=== PATIENT | female | born 1970 | race Caucasian/White ===

== ENCOUNTER 2018-09-11 07:15 | Emergency (ER) | payer OTHER ==
[2018-09-11 07:24] VITALS: BP 137/95; PULSE 80; TEMP 98; BMI 22.0
--- NOTE | 2018-09-11 07:53 | PDOC ---
History of Present Illness - General Chief Complaint: Injury Stated Complaint: CUT LEFT 1ST FINGER Time Seen by Provider: 09/11/18 07:46 History Source: Patient Exam Limitations: No Limitations - History of Present Illness Initial Comments: 09/11/18 07:48\\ 48 YOF with no med history presenting with left index fingertip skin laceration s/p cut with serrated knife to bagel. bleeding here. tdap up to date. taken motrin WASHER OFF. Allergies: None Past Medical History: none Social history: Lives with family. No tobacco, ETOH or drug use. Surgical history: noncontributory Past History - Past Medical History Allergies/Adverse Reactions: Allergies Allergy/AdvReac Type Severity Reaction Status Date / Time No Known Allergies Allergy Verified 09/11/18 07:17 Home Medications: Ambulatory Orders Albuterol Sulfate Inhaler - [Ventolin Hfa Inhaler -] 1 - 2 inh PO QID 09/11/18 Asthma: Yes COPD: No - Immunization History Immunization Up to Date: Yes - Suicide/Smoking/Psychosocial Hx Smoking History: Never smoked Have you smoked in the past 12 months: No Information on smoking cessation initiated: No Hx Alcohol Use: No Drug/Substance Use Hx: No Review of Systems - Review of Systems Able to Perform ROS?: Yes Comments:: 09/11/18 07:49 MUSCULOSKELETAL: No joint pain and swelling. No neck or back pain. +finger pain SKIN: no redness or skin changes, no discharge, no rash. +skin laceration/ avulsion of fingertip skin Hematologic: no easy bruising/bleeding. NEUROLOGIC: No weakness, numbness or tingling. Allergic/Immunologic: no allergies All other systems reviewed and negative, or as documented in HPI. *Physical Exam - Vital Signs Last Vital Signs Temp Pulse Resp BP Pulse Ox 98 F 80 16 137/95 100 09/11/18 07:19 09/11/18 07:19 09/11/18 07:19 09/11/18 07:19 09/11/18 07:19 - Physical Exam Comments: 09/11/18 07:47 General: NAD, well appearing Vascular: 2+ radialis pulses symmetric and equal. Neuro: distal heel finisher strength 5/5. sensation grossly intact in median/radial/ ulnar distribution. MSK: soft compartments, Cap refill <2 sec. 2+ radialis pulses bilaterally and symmetric. FDP/FDS intact. no joint tenderness. FROM. Skin: color normal color, warm and well perfused. superficial bleeding fingertip skin avulsion on left index finger on palmar aspect. Moderate Sedation - Procedure Monitoring Vital Signs: Procedure Monitoring Vital Signs Temperature 98 F 09/11/18 07:19 Pulse Rate 80 09/11/18 07:19 Respiratory Rate 16 09/11/18 07:19 Blood Pressure 137/95 09/11/18 07:19 O2 Sat by Pulse Oximetry (%) 100 09/11/18 07:19 Procedures - Laceration/Wound Repair Left Volar Finger Wound Length: to 2.5 cm Wound Explored: clean Wound's Depth, Shape: superficial Irrigated w/ Saline: Yes Anesthesia: 1% Lidocaine Amount of Anesthetic (ccs): 2 Wound Debrided: minimal Sterile Dressing Applied: Yes Progress: 09/11/18 07:50 digital block placed to left index finger. analegesia achieved saline irrigation topically. wound washed and cleaned adequately. topical gauze soaked in TXA for hemostasis as copious bleeding despite brief tourniquet. surgicel placed topically, bleeding controlled well. dressings placed 09/11/18 08:54 Medical Decision Making - Medical Decision Making 09/11/18 07:51 wound/laceration assessed and repaired, w/o complications, bleeding controlled. area cleaned and dried, dressings placed with topical bacitracin. monitor for signs of infection including fevers or chills, redness, streaking, swelling, purulence, malodor. keep dry x 24 hours, then may wash with soap and water 2-3X per day, topical antibiotics such as neosporin. follow up in days for suture removal. motrin/tylenol for pain control. tetanus is also up to date. pt and family made aware of impression and plan. *DC/Admit/Observation/Transfer Diagnosis at time of Disposition: Finger laceration Qualifiers: Encounter type: initial encounter Finger: index finger - Discharge Dispostion Disposition: HOME Condition at time of disposition: Stable Decision to Admit order: No - Referrals - Patient Instructions Printed Discharge Instructions: DI for Laceration Repair -- Finger, DI for Avulsion Laceration (Not Requiring Sutures) Additional Instructions: you sustained a superficial skin avulsion that was not repaired with sutures this could scar and scab, but monitor for infection as below wound/laceration assessed and repaired with topical hemostatic and topical surgicel Matrix, w/o complications, bleeding controlled. area cleaned and dried , dressings placed as follows: -keep the hemostatic matrix "scab" in place - do not peel or touch or agitate, this is keeping the scab forming. - then put on the Telfa which is a non adherent dressing - wrap around a steri strip to bring the Telfa together - put on a gauze over for cushioning. wrap a longer white dressing around the outside for completion. - you can cut a gloved finger over for cosmetic purposes. monitor for signs of infection including fevers or chills, redness, streaking, swelling, purulence, malodor. keep dry x 24 hours, then may keep using bandaid to keep wound covered.. motrin/tylenol for pain control as needed. tetanus is also up to date. the surgicel will fall off within 1 week, do not peel or remove it. shower and wash yourself with a gloved hand to prevent agitating any further injury or bleeding. if bleeding returns or persists or any signs of infection return to the ED for reevaluation. - Post Discharge Activity
[2018-09-11] MEDS ORDERED: TRANEXAMIC ACID 1000 MG/10 ML VIAL ONE (08:11)
== END 2018-09-11 09:01 | disposition home or self-care (01) ==
LOC: FER 07:15
PROC: 0HQGXZZ Repair Left Hand Skin, External Approach (ICD-10-PCS; principal; 2018-09-11)
DX: S61.211A Laceration without foreign body of left index finger without damage to nail, initial encounter (principal); J45.909 Unspecified asthma, uncomplicated; W26.0XXA Contact with knife, initial encounter; Y93.G1 Activity, food preparation and clean up; Y92.89 Other specified places as the place of occurrence of the external cause
CPT/HCPCS: 99281-25